=== PATIENT | female | born 1975 | race Caucasian/White ===

== ENCOUNTER 2016-08-05 15:08 | Emergency (ER) | payer OTHER ==
[2016-08-05 16:47] LABS: HEMOGLOBIN 9.1 gm/dl (12.3-15.3); RED BLOOD COUNT 4.41 M/UL (4.00-5.10); WHITE BLOOD COUNT 18.3 K/UL (4.5-11.0)
[2016-08-05 16:59] LABS: BUN/CREATININE RATIO 12 (0-10)
[2016-08-06] MEDS ORDERED: NORCO 10-325 T1 EACH PO (16:22)
[2016-08-06] MEDS ORDERED: ZANAFLEX 4 MG TA4 MG PO (16:22)
[2016-08-06] MEDS ORDERED: ZOFRAN4 MG PO (16:22)
[2016-08-06] MEDS ORDERED: STOOL SOFTENER100 M1 PO (16:23)
== END 2016-08-05 21:20 | disposition home or self-care (01) ==
LOC: ER1 15:08
PROVIDERS: Emergency Medicine
DX: I82.411 Acute embolism and thrombosis of right femoral vein (principal); I82.431 Acute embolism and thrombosis of right popliteal vein; I82.441 Acute embolism and thrombosis of right tibial vein; I73.9 Peripheral vascular disease, unspecified; Z79.891 Long term (current) use of opiate analgesic
CPT/HCPCS: 36415; 80048; 85025; 85610; 85730; 93926; 93971; 96372; 96374; 96375; 96376; 99284; J1650; J2270; J2405; J2550; J7030

== ENCOUNTER 2016-08-06 08:24 | Inpatient (IN) | payer OTHER ==
[~2016-08-06] VITALS: Ht 180.3 cm; Wt 101.6 kg
[2016-08-06 09:38] LABS: RED BLOOD COUNT 4.24 M/UL (4.00-5.10)
[2016-08-06 09:41] LABS: WHITE BLOOD COUNT 9.9 K/UL (4.5-11.0)
[2016-08-06 09:56] LABS: BUN/CREATININE RATIO 14 (0-10)
[2016-08-06] MEDS ORDERED: NORCO 10-325 T1 EACH PO (16:22)
[2016-08-06] MEDS ORDERED: ZOFRAN4 MG PO (16:22)
[2016-08-06] MEDS ORDERED: ZANAFLEX 4 MG TA4 MG PO (16:22)
[2016-08-06] MEDS ORDERED: STOOL SOFTENER100 M1 PO (16:23)
[2016-08-07 05:43] LABS: HEMOGLOBIN 8.2 gm/dl (12.3-15.3); RED BLOOD COUNT 3.95 M/UL (4.00-5.10)
[2016-08-07 06:12] LABS: BUN/CREATININE RATIO 13 (0-10)
[2016-08-08 05:14] LABS: HEMOGLOBIN 8.1 gm/dl (12.3-15.3); RED BLOOD COUNT 3.92 M/UL (4.00-5.10); WHITE BLOOD COUNT 7.5 K/UL (4.5-11.0)
== END 2016-08-08 20:35 | disposition short-term general hospital (02) | DRG 300 ==
LOC: ER1 08:24 → ZEROF 10:00 → PROG CARE 16:44
PROVIDERS: Emergency Medicine; Physician Assistant Medical; ADMIT Internal Medicine
PROC: B4201ZZ Computerized Tomography (CT Scan) of Abdominal Aorta using Low Osmolar Contrast (ICD-10-PCS; principal; 2016-08-07)
PROC: B42H1ZZ Computerized Tomography (CT Scan) of Bilateral Lower Extremity Arteries using Low Osmolar Contrast (ICD-10-PCS; principal; 2016-08-07)
DX: I73.9 Peripheral vascular disease, unspecified (principal); I82.4Z1 Acute embolism and thrombosis of unspecified deep veins of right distal lower extremity; M51.36 Other intervertebral disc degeneration, lumbar region; D50.9 Iron deficiency anemia, unspecified; K59.00 Constipation, unspecified; M54.41 Lumbago with sciatica, right side; F17.210 Nicotine dependence, cigarettes, uncomplicated; Z98.51 Tubal ligation status; Z98.890 Other specified postprocedural states; Z82.49 Family history of ischemic heart disease and other diseases of the circulatory system; Z83.3 Family history of diabetes mellitus
CPT/HCPCS: ECHO; 36415; 75635; 80048; 80053; 80061; 82607; 82728; 82746; 83540; 83550; 83735; 85025; 85027; 85610; 85730; 93005; 93306; 93926; 96374; 96375; 96376; 99284; J1644; J2270; J2405; J7050; Q9963

== ENCOUNTER 2016-11-16 16:58 | Emergency (ER) | payer OTHER ==
[~2016-11-16 16:58] MED LIST: NORCO 10-325 T1 EACH PO; STOOL SOFTENER100 M1 PO; ZANAFLEX 4 MG TA4 MG PO; ZOFRAN4 MG PO
[2016-11-16 18:56] LABS: HEMOGLOBIN 8.4 gm/dl (12.3-15.3); RED BLOOD COUNT 4.09 M/UL (4.00-5.10); WHITE BLOOD COUNT 8.9 K/UL (4.5-11.0)
[2016-11-16 19:00] LABS: BUN/CREATININE RATIO 10 (0-10)
== END 2016-11-16 22:57 | disposition home or self-care (01) ==
LOC: ER1 16:58
PROVIDERS: Physician Assistant
DX: I82.4Z1 Acute embolism and thrombosis of unspecified deep veins of right distal lower extremity (principal); R07.81 Pleurodynia
CPT/HCPCS: 36415; 80053; 84484; 85025; 93005; 93926; 93971; 99284; J7050; Q9963

== ENCOUNTER 2020-06-19 21:41 | Emergency (ER) | payer OTHER ==
[~2020-06-19 21:41] MED LIST changes: +BENTYL 20MG TAB20 MG PO
[2020-06-20] MEDS ORDERED: LODINE CAP 300300 MG PO (01:31)
== END 2020-06-20 02:14 | disposition home or self-care (01) ==
LOC: ER1 21:41
DX: S93.401A Sprain of unspecified ligament of right ankle, initial encounter (principal); S93.601A Unspecified sprain of right foot, initial encounter; F17.210 Nicotine dependence, cigarettes, uncomplicated; W01.0XXA Fall on same level from slipping, tripping and stumbling without subsequent striking against object, initial encounter; Y92.009 Unspecified place in unspecified non-institutional (private) residence as the place of occurrence of the external cause
CPT/HCPCS: 73590; 73610; 73620; 99283

== ENCOUNTER → 2020-08-22 | Outpatient (CLI) | payer MEDICARE, OTHER ==
[~2020-08-22] MED LIST changes: +LODINE CAP 300300 MG PO
== END ==
LOC: KOH-I 14:51
DX: S93.401A Sprain of unspecified ligament of right ankle, initial encounter (principal); X58.XXXA Exposure to other specified factors, initial encounter; Z53.9 Procedure and treatment not carried out, unspecified reason

== ENCOUNTER 2022-01-16 20:59 | Emergency (ER) | payer MEDICARE, OTHER ==
[2022-01-17] MEDS ORDERED: ZOFRAN 4 MG TAB4 MG PO (10:41)
== END 2022-01-17 01:24 | disposition left against medical advice (07) ==
LOC: ER1 20:59
DX: U07.1 COVID-19 (principal); R40.2410 Glasgow coma scale score 13-15, unspecified time; Z90.710 Acquired absence of both cervix and uterus; Z79.01 Long term (current) use of anticoagulants; Z87.891 Personal history of nicotine dependence
CPT/HCPCS: 0240U; 99283

== ENCOUNTER 2022-01-17 08:46 | Emergency (ER) | payer MEDICARE, OTHER ==
[2022-01-17 09:59] LABS: HEMOGLOBIN 13.6 gm/dl (12.3-15.3); RED BLOOD COUNT 4.4 M/UL (4.00-5.10); WHITE BLOOD COUNT 7.3 K/UL (4.5-11.0)
[2022-01-17 10:18] LABS: BUN/CREATININE RATIO 8 (0-10)
[2022-01-17] MEDS ORDERED: ZOFRAN 4 MG TAB4 MG PO (10:41)
== END 2022-01-17 10:54 | disposition home or self-care (01) ==
LOC: ER1 08:46
PROVIDERS: Physician Assistant
DX: U07.1 COVID-19 (principal); Z79.02 Long term (current) use of antithrombotics/antiplatelets; Z79.01 Long term (current) use of anticoagulants
CPT/HCPCS: 80053; 85025; 96361; 96374; 99284